=== PATIENT | male | born 1990 | race Caucasian/White ===

== ENCOUNTER 2017-06-09 00:59 | Emergency (ER) | payer BC ==
[~2017-06-09] VITALS: Ht 190.5 cm; Wt 89.8 kg
[2017-06-09 01:30] VITALS: BP 143/98
[2017-06-09] MEDS ORDERED: IBUP-1007 PO (02:38)
[2017-06-09] MEDS ORDERED: HYDR-971 PO (02:38)
--- NOTE | 2017-06-09 02:38 | PHYS DOC ---
Past Medical History Past Medical History: Asthma Past Surgical History: Other Additional Past Surgical Histo: EYE Alcohol Use: Occasionally Drug Use: None Adult General Chief Complaint Chief Complaint: UPPER EXTREMITY INJURY HPI HPI Patient is a 26 year old [id number] gentleman who presents here today with pain to his right fifth MCP joint. Patient reports he was drinking alcohol earlier and he and his friends were wrestling and he fell down to the ground. Patient was stop his fall to the ground his hand and starts having severe pain to his right hand. Patient denies any altercation or finding. Patient avidly denies punching anybody in the mouth. Review of systems: Constitutional: Denies fever or chills Eyes: Denies change in visual acuity, redness, or eye pain HENT: Denies nasal congestion or sore throat All other review systems are negative except as documented in the history of present illness portion. Physical exam: Constitutional: Well developed, well nourished, no acute distress, non-toxic appearance. HENT: Normocephalic, atraumatic, bilateral external ears normal, Eyes: EOMI, conjunctiva normal, no discharge. Neck: Normal range of motion, Cardiovascular: Regular rate Lungs & Thorax: No respiratory distress Abdomen: Bowel sounds normal, soft, no tenderness, Skin: Warm, dry, no erythema, no rash. Back: No tenderness, no CVA tenderness. Extremities: ROM intact, no edema. Neurologic: Alert and oriented X 3, normal motor function, normal sensory function, no focal deficits noted. Psychologic: Affect normal, judgement normal, mood normal. Patient's ER physical exam was significant for tenderness to palpation over his fifth MCP joint. Patient has no tenderness to his wrist. Patient's full range of motion intact. Patient has superficial abrasions to his fingers. There is nothing there that looks like it would be consistent with a puncture todd or right todd. Patient is neurovascularly intact. Patient's sensation is intact. Patient has good capillary refill. Patient's ER workup consisted of an x-ray that revealed an avulsion fracture of his right fifth MCP. Patient was placed in ulnar gutter splint and will be referred to orthopedics for full evaluation of a fractured fifth MCP. There does not appear to be any angulation. Assessment and plan: This is a 26-year-old gentleman with a fracture of his right fifth MCP that appears to be an avulsion fracture with no angulation or dislocation. Patient clinically has no tenderness over his fourth MCP. Patient was placed in a ulnar gutter splint in a position of function. Patient is neurovascularly intact after splint formation. I have evaluated the splint after its placement. Patient will be discharged home with ibuprofen and Lortab. Narcotics were avoided in the ED secondary to his alcohol use earlier today. Patient was given the phone number for Dr. Gomez to call in the morning on Saturday for further evaluation and management. Allergies Allergies Allergies Coded Allergies Type Severity Reaction Last Updated Verified Penicillins Allergy Unknown "RASH" 06/09/17 No Current Patient Data Vital Signs Vital Signs Date Time Temp Pulse Resp B/P (MAP) Pulse Ox O2 Delivery O2 Flow Rate FiO2 06/09/17 01:30 97.8 58 20 100 Room Air 97.8 EKG EKG [] Radiology/Procedures Radiology/Procedures [] Course & Med Decision Making Course & Med Decision Making Pertinent Labs and Imaging studies reviewed. (See chart for details) [] Dragon Disclaimer Dragon Disclaimer This electronic medical record was generated, in whole or in part, using a voice recognition dictation system. Departure Departure Impression: Primary Impression: Fracture of metacarpophalangeal (MCP) joint Additional Impression: Boxers fracture Disposition: HOME, SELF-CARE Condition: IMPROVED Referrals: NO PCP (PCP) MATIAS GOMEZ MD Patient Instructions: Yary's Fracture-SportsMed, Cast or Splint Care Additional Instructions: Please call Dr. Gomez, our orthopedic surgeon, Saturday morning to arrange for follow-up. He will need a cast placed on your hand. You will need an orthopedic surgeon to assure appropriate healing of her fracture. Scripts Hydrocodone/Apap 5-325 (NORCO 5-325 TABLET) 1 Each Tablet 1 TAB PO QID Y for PAIN, #20 TAB Prov: KADE RAPP MD 06/09/17 Ibuprofen (IBUPROFEN) 600 Mg Tablet 600 MG PO PRN Q6HRS Y for PAIN, #20 TAB Prov: KADE RAPP MD 06/09/17 Problem Qualifiers Primary Impression: Fracture of metacarpophalangeal (MCP) joint Encounter type: initial encounter Fracture type: closed Qualified Codes: S62.309A - Unspecified fracture of unspecified metacarpal bone, initial encounter for closed fracture KADE RAPP MD Jun 09, 2017 02:38
[2017-06-09] MEDS ORDERED: IBUPROFEN 600 MG TABLET. PO ONE (02:45)
--- NOTE | 2017-06-09 08:56 | RAD ---
Three-view right hand radiographs 06/09/2017 Clinical history: Right hand injury. PA, lateral and oblique digital radiographs of the right hand were obtained. A 5 mm bony density is seen lateral to the hamate bone near the base of the right fifth metacarpal which likely represents an acute avulsion fracture probably from the hamate. Clinical correlation with the patient's injury is recommended. No additional fracture is seen. Impression: 5 mm bony density is seen lateral to the hamate which likely represents an acute avulsion fracture. Clinical correlation with patient's injury is recommended.
== END 2017-06-09 02:44 | disposition home or self-care (01) ==
LOC: ER 00:59
DX: S62.306A Unspecified fracture of fifth metacarpal bone, right hand, initial encounter for closed fracture (principal); J45.909 Unspecified asthma, uncomplicated; Z88.0 Allergy status to penicillin; W18.39XA Other fall on same level, initial encounter; Y93.72 Activity, wrestling; Y92.89 Other specified places as the place of occurrence of the external cause; Y99.8 Other external cause status
CPT/HCPCS: 29125; 73130; 99284-25

== ENCOUNTER → 2020-10-17 | Outpatient (CLI) | payer BC ==
[~2020-10-17] MED LIST: HYDR-3164 PO; IBUP-1007 PO
[2020-10-17 15:32] LABS: BASO % 0 % (0-3); EOS # 0.1 x10^3/uL (0.0-0.7); EOS % 2 % (0-3); HEMATOCRIT 46.1 % (39.0-53.0); HEMOGLOBIN 15.8 g/dL (13.0-17.5); LYMPH # 2.4 x10^3/uL (1.0-4.8); LYMPH % 41 % (24-48); MEAN CORPUSCULAR HEMOGLOBIN 30 pg (25-35); MEAN CORPUSCULAR HGB CONC 34 g/dL (31-37); MEAN CORPUSCULAR VOLUME 88 fL (79-100); MONO # 0.5 x10^3/uL (0.0-1.1); MONO % 8 % (0-9); NEUT # 2.8 x10^3/uL (1.8-7.7); NEUT % 48 % (31-73); PLATELET COUNT 187 x10^3/uL (140-400); RED BLOOD COUNT 5.25 x10^6/uL (4.30-5.70); RED CELL DISTRIBUTION WIDTH 12.6 % (11.5-14.5); WHITE BLOOD COUNT 5.8 x10^3/uL (4.0-11.0)
[2020-10-17 15:55] LABS: ALBUMIN 4.1 g/dL (3.4-5.0); ALBUMIN/GLOBULIN RATIO 1.2 (1.0-1.7); CALCIUM 8.7 mg/dL (8.5-10.1); POTASSIUM 3.6 mmol/L (3.5-5.1); TOTAL BILIRUBIN 0.3 mg/dL (0.2-1.0); TOTAL PROTEIN 7.4 g/dL (6.4-8.2)
== END ==
LOC: SURGPAT 13:21
PROVIDERS: ATTEND Neurological Surgery
DX: Z01.812 Encounter for preprocedural laboratory examination (principal); M51.16 Intervertebral disc disorders with radiculopathy, lumbar region; Z88.0 Allergy status to penicillin
CPT/HCPCS: 36415; 80053; 85025; 87641

== ENCOUNTER → 2020-10-19 | Outpatient (CLI) | payer BC ==
--- NOTE | 2020-10-22 14:37 | NUR ---
IP: Informed pt of continued positivity of COVID test. Notified Jacqueline CY[employer] DEFENSE FORENS[employer] ANALYST with Dr. Choi. Jacqueline will contact pt on Saturday for next plan.
== END ==
LOC: LAB 15:18
PROVIDERS: ATTEND Neurological Surgery
DX: Z01.812 Encounter for preprocedural laboratory examination (principal); U07.1 COVID-19; M51.16 Intervertebral disc disorders with radiculopathy, lumbar region
CPT/HCPCS: U0003

== ENCOUNTER → 2020-11-11 | Outpatient (CLI) | payer BC ==
[~2020-11-11] MED LIST changes: +DOCU-109 PO; +HYDR-2759 PO; +METH-38 PO
== END ==
LOC: LAB 12:51
PROVIDERS: ATTEND Neurological Surgery
DX: Z01.812 Encounter for preprocedural laboratory examination (principal); Q05.7 Lumbar spina bifida without hydrocephalus; Z20.828 Contact with and (suspected) exposure to other viral communicable diseases
CPT/HCPCS: U0003

== ENCOUNTER 2020-11-14 07:14 | Day surgery (SDC) | payer BC ==
--- NOTE | 2020-11-11 17:20 | HP ---
ADMIT DATE: 11/14/2020 HISTORY OF PRESENT ILLNESS: The patient is a pleasant 30-year-old who is having difficulty with low back pain. The problem has been present for years. Beginning about 4 months ago, he spontaneously developed pain in his right buttock and right posterior thigh. That pain became significant and reached 10/10. Getting up from a seated position is very painful for him. Bending or stretching is also painful. He has been to a chiropractor multiple times without benefit. He had epidural steroid injection about a month ago with no improvement. CURRENT MEDICATIONS: No current medications. PAST MEDICAL HISTORY: Asthma. PAST SURGICAL HISTORY: Eye surgery in 2005. FAMILY HISTORY: Noncontributory. SOCIAL HISTORY: Employed at [employer]. Single. Nonsmoker. Drinks alcohol 1-2 times per week. ALLERGIES: PENICILLIN. REVIEW OF SYSTEMS: A 12-point review of systems was performed and is noncontributory except that mentioned above. PHYSICAL EXAMINATION: GENERAL: Alert, pleasant, in no acute distress. HEAD: Normocephalic, atraumatic. SKIN: Warm and dry. MUSCULOSKELETAL: Lumbar paraspinal muscle bulk is normal, restricted range of motion of the lumbar spine, [id number] tenderness of the lower lumbar spine with palpation, normal range of motion of the lower extremities bilaterally. EXTREMITIES: No clubbing, cyanosis or edema. NEUROLOGIC: Alert and oriented x 3. Strength is 5/5 in the lower extremities, sensory was intact to light touch in the lower extremities, reflexes were present and symmetric in the lower extremities, markedly positive straight leg raising on the right, positive straight leg raising on the left, normal gait. IMAGING: I reviewed a lumbar MRI scan from July. On that study, at L5-S1, there is a large right paracentral disc herniation markedly compressing the right S1 nerve root. There is also a right-sided foraminal narrowing, which may affect the right L5 root. ASSESSMENT AND PLAN: The patient has a large extruded disk fragment at L5-S1 on the right with marked nerve root compression. He is having episodes of severe pain, which is interfering with all of his activities. He has received conservative treatments without significant improvement. I recommended lumbar microsurgical decompression and microdiscectomy at L5-S1 on the right. I spoke with him about the surgery, the potential complications and expected postoperative course. He understands and would like to go ahead. DIPESH FISHMAN MD DR: Adelina JOB#: [id number] / [id number] STEPHANI
[~2020-11-14] VITALS: Ht 190.5 cm; Wt 93.0 kg
[~2020-11-14 07:14] MED LIST changes: +BACITRACIN 50,000 UNIT in IV NORMAL SALINE 1000ML BAG 1,000 ML IRR ONE; -DOCU-109 PO; -HYDR-2759 PO; -METH-38 PO; +VANCOMYCIN 1GM IVPB FOR OMNI 250 ML IV PRN
[2020-11-14] MEDS ORDERED: GELATIN SPONGE SIZE 100. ONE (07:30)
[2020-11-14] MEDS ORDERED: THROMBIN TOPICAL 20,000 UNIT SPRAY.SYRN KIT TP ONE (07:30)
[2020-11-14] MEDS ORDERED: LIDOCAINE 2%/EPI 1:100,000 20 ML VIAL. ONE (07:30)
[2020-11-14] MEDS ORDERED: KETOROLAC 60 MG/2 ML VIAL. ONE (07:30)
[2020-11-14] MEDS ORDERED: PHENYLEPHRINE 10 MG/ML VIAL. ONE (07:58)
[2020-11-14] MEDS ORDERED: LIDOCAINE 2% PF 5 ML VIAL. ONE (07:58)
[2020-11-14] MEDS ORDERED: PROPOFOL 50 ML IV ONE ×2 (07:58→09:46)
[2020-11-14] MEDS ORDERED: PROPOFOL 10 MG/ML (20ML) VIAL. IV ONE (07:58)
[2020-11-14] MEDS ORDERED: fentaNYL PF VIAL 100 MCG/2 ML VIAL ONE ×2 (07:59→09:15)
[2020-11-14] MEDS ORDERED: 0.9 % SODIUM CHLORIDE 20 ML VIAL. IJ ONE ×2 (07:59→10:17)
[2020-11-14] MEDS ORDERED: MIDAZOLAM HCL/PF 2 MG/2 ML VIAL. ONE (07:59)
[2020-11-14] MEDS ORDERED: REMIFENTANIL 1 MG VIAL. IV ONE ×2 (07:59→10:17)
[2020-11-14] MEDS ORDERED: IV RINGERS,LACTATED 1000ML 1,000 ML IV SCH ×2 (08:00→08:30)
[2020-11-14] MEDS ORDERED: ROCURONIUM 50 MG/5 ML VIAL. ONE (08:12)
[2020-11-14] MEDS ORDERED: SUCCINYLCHOLINE 200 MG/10 ML VIAL. ONE (08:12)
[2020-11-14] MEDS ORDERED: VANCOMYCIN 1GM IVPB FOR OMNI 250 ML IV ONE (08:30)
[2020-11-14] MEDS ORDERED: LIDOCAINE 1% PF 2 ML VIAL. ID PRN (08:30)
[2020-11-14] MEDS ORDERED: ONDANSETRON PF 4 MG/2 ML VIAL. IV PRN (08:30)
[2020-11-14] MEDS ORDERED: PROCHLORPERAZINE 10 MG/2 ML VIAL. IV PRN (08:30)
[2020-11-14] MEDS ORDERED: fentaNYL PF VIAL 100 MCG/2 ML VIAL IV PRN ×2 (08:30)
[2020-11-14] MEDS ORDERED: DEXAMETHASONE SOD PHOS 4 MG/ML VIAL ONE (09:11)
[2020-11-14] MEDS ORDERED: ONDANSETRON PF 4 MG/2 ML VIAL. ONE (09:11)
[2020-11-14] MEDS ORDERED: DESFLURANE > 120 MINUTES IH ONE (10:13)
[2020-11-14] MEDS ORDERED: METH-38 PO (11:02)
[2020-11-14] MEDS ORDERED: DOCU-109 PO (11:02)
[2020-11-14] MEDS ORDERED: HYDR-2759 PO (11:02)
--- NOTE | 2020-11-14 11:04 | DISCH ---
DISCHARGE INSTRUCTIONS Condition on Discharge Condition on Discharge: Stable Activity After Discharge Activity Instructions for Disc: Activity as tolerated, Avoid exertion Other activity instructions: no driving for a week Bathing Instructions: Shower-keep dressing dry, No Tub Bath until see Lifting Instructions after Dis: No heavy lifting, No pulling or pushing, Do not lift >10 pounds Diet after Discharge Additional Diet Restrictions: resume home diet Wound Incision Care Wound/Incision Care: Ice to area for comfort Other wound/incision instructi: may remove dressing in 48 hours if dry then may shower, no soaking Contacting the after DC Call your doctor for: Concerns you may have Follow-Up Follow up with: Dr. Fishman's nurse in 2 weeks [phone] DIPESH FISHMAN MD Nov 14, 2020 11:04
--- NOTE | 2020-11-14 11:16 | OP ---
DATE OF SURGERY: 11/14/2020 PREOPERATIVE DIAGNOSIS: Herniated lumbar disc, L5-S1, right with severe right lumbar radiculopathy. POSTOPERATIVE DIAGNOSIS: Herniated lumbar disC, L5-S1, right with severe right lumbar radiculopathy. OPERATION PERFORMED: Hemilaminotomy and microdiscectomy, L5-S1, right. The operation was done with EMG monitoring, SSEP monitoring, fluoroscopy, microscopic dissection. SURGEON: Avni Fishman M.D. MILK TRUCK DRIVER: DELIA Lutz, assisted with the surgery. She assisted with the microdecompression/ microdiscectomy as well as the closure. OPERATIVE INDICATIONS: The patient is a pleasant 30-year-old who developed severe intractable back and right leg pain, which failed to improve with a considerable amount of conservative measures. There was a focal disc herniation L5-S1 on the right, compressing the right S1 nerve root and I recommended lumbar microsurgery. I spoke with him about the surgery, the risks, technique and expected postoperative course and he wished to go ahead. DESCRIPTION OF PROCEDURE: Following general endotracheal anesthesia, the patient was positioned prone on the Shailesh frame. His lumbar region was prepped and draped in the standard fashion. JAYASHREE hose and AV impulse boots were applied for DVT prophylaxis. A microscope was draped. Fluoroscopy was draped and brought into the field and monitoring was established. Vancomycin 1 gram was given prior to surgery. Using fluoroscopic guidance, a midline incision was made directly over the L5-S1 interspace, I dissected skin and subcutaneous tissue, reflected the paraspinal muscles, placed a micro retractor, I brought in the microscope and burred down a generous hemilaminotomy with a high speed air drill, trimmed away thickened ligamentum flavum, exposing the dura. I performed a partial foraminotomy. There was a focal disc herniation lifting and compressing the right S1 root and I gently retracted the root medially and then incised the posterior ligament and removed multiple disc fragments. I then used micro pituitaries, went deeper and performed discectomy with pituitary rongeurs and then I explored carefully. There were few small subligamentous fragments, which I removed. Following this, the region was very well decompressed. I irrigated copiously with antibiotic solution. Hemostasis was excellent. The monitoring improved with microdecompression. The surgery went very well. We closed the wound with absorbable sutures after obtaining perfect hemostasis in the muscle and the skin was closed with 4-0 subcuticular stitch. Again, the surgery went very well. AVNI FISHMAN MD DR: Walker JOB#: [id number] / [id number] STEPHANI
[2020-11-14] MEDS ORDERED: MORPHINE SULFATE 2 MG/ML VIAL. ONE (11:29)
[2020-11-14] MEDS: MORPHINE SULFATE 2 MG/ML VIAL. IV PRN ×2 (11:31→11:44)
[2020-11-14] MEDS ORDERED: HYDROmorphone 2 MG/ML VIAL ONE (11:34)
[2020-11-14] MEDS: HYDROmorphone 2 MG/ML VIAL IV PRN ×5 (11:40→12:40)
[2020-11-14 12:11] VITALS: BP 148/92
[2020-11-14] MEDS ORDERED: HYDROcodone/APAP 5/325MG 1 TAB TABLET PO ONE (12:15)
== END 2020-11-14 13:04 | disposition home or self-care (01) ==
LOC: SURG 07:14
PROVIDERS: ATTEND Neurological Surgery
DX: M54.16 Radiculopathy, lumbar region (principal); J45.909 Unspecified asthma, uncomplicated; Z98.890 Other specified postprocedural states; Z79.899 Other long term (current) drug therapy; Z88.0 Allergy status to penicillin
CPT/HCPCS: 63030; 76000; 88304; 88311; 97161; J0330; J1100; J1170; J1885; J2270; J2370; J2405; J2704; J3010; J3370; J3490; J7030; J2250